=== PATIENT | male | born 1955 | race Caucasian/White ===

== ENCOUNTER → 2019-07-25 | Outpatient (CLI) | payer OTHER | LOC: M.ULTRA 08:50 | DX: K76.0 Fatty (change of) liver, not elsewhere classified (principal); R79.89 Other specified abnormal findings of blood chemistry ==

== ENCOUNTER → 2021-02-27 | Day surgery (SDC) | payer OTHER ==
[~2021-02-27] MED LIST: MELOXICAM15 MG PO; OMEPRAZOLE 20 M20 M1 PO; OXYCODONE HCL 55 MG PO
--- NOTE | ~2021-02-27 | OP ---
[address] [address] OPERATIVE REPORT Name: GAY RODRIGUEZ Room: [facility].#: [id number] Admission: 02/27/21 Attend Phys: Neno Carpenter DO Discharge: Date of : 55 Report #: [id number] THIS REPORT FOR: cc: Devaughn Helm,Neno Rudd DO ~ cc: Devaughn Helm DO DATE OF SURGERY: 02/27/2021 REFERRING PHYSICIAN: Devaughn Helm DO PREOPERATIVE DIAGNOSIS: Bilateral inguinal hernias. POSTOPERATIVE DIAGNOSIS: Bilateral direct inguinal hernias with the left being larger than the right. PROCEDURES: Da Hallie robotic-assisted laparoscopic bilateral inguinal hernia repair with anatomic ProGrip mesh 10 x 15 cm on both sides. SURGEON: Neno Carpenter DO GUIDANCE CONSULTANT: Dr. Austin Galindo, PGY1. SECOND ROLL UP MACHINE OPERATOR: Student, Dr. Torsten Mahmood, MS4. ANESTHESIA: General endotracheal and TAP blocks. ESTIMATED BLOOD LOSS: Less than 20 mL. COMPLICATIONS: None. DESCRIPTION OF PROCEDURE: After obtaining proper consents and discussing risks and complications with the patient, he was taken to the operating room, laid in the supine position and administered general endotracheal anesthetic. He was then prepped and draped in the usual sterile fashion. A time-out was performed. We confirmed the appropriate patient and procedure. Preoperative antibiotics had been given. SCDs were in place. We also had Anesthesia perform TAP blocks before we prepped and draped the patient. Once the patient was prepped and draped, we made a small supraumbilical skin incision with a #11 scalpel blade. This was carried down through the skin into the subcutaneous tissue using electrocautery for hemostasis. Once the fascia was encountered, it was incised along the midline, grasped and elevated with William clamps. The peritoneum was then bluntly opened using a hemostat. We then placed 2-0 Vicryl sutures in a byegdl-es-aeovh fashion to secure the camera port, which was then inserted. Once the camera port was inserted, insufflation was begun[place] [address] OPERATIVE REPORT Name: GAY RODRIGUEZ Room: [facility].#: [id number] Admission: 02/27/21 Attend Phys: Neno Carpenter DO Discharge: Date of : 55 Report #: [id number] was complete, full visual inspection of the anterior abdominal organs was performed. This revealed a small right direct inguinal hernia. We were unable to see the left side at this point because there were some adhesions of the sigmoid colon up over the left inguinal region. We did, however, note that the patient had a fairly large hernia in that area, so we proceeded to place 2 more Da Hallie laparoscopic ports, 1 in the right upper quadrant and 1 in the left upper quadrant. We then docked the da Hallie robot. Once the robot was docked, we inserted monopolar scissors in the right upper quadrant and a bipolar fenestrated grasper in the left upper quadrant. I then broke scrub and went on console. Once on console, I was able to take down the adhesions of the sigmoid colon to the left abdominal wall and then identified a direct inguinal hernia, which was quite a bit larger than the one on the right. We then identified the ASIS on both sides. At this point, we inserted the right and left anatomic ProGrip meshes along with a 2-0 absorbable V-Loc suture for each side. I then opened the peritoneum from the median umbilical ligament on the left side laterally to the ASIS. I then developed the preperitoneal space starting medially and going all the way down to the pubic ramus. Once at the pubic ramus, I then dissected more laterally and I was easily able to reduce the direct hernia back into the peritoneal cavity. I then continued the dissection laterally along the spermatic cord and dissected the peritoneum away until I was able to go all the way out to the ASIS and make the opening large enough for the 10 x 15 cm ProGrip mesh. I then turned my attention to the patient's right side, where I opened the peritoneum similarly from the median umbilical ligament laterally to the ASIS. I then dissected medially first all the way down below the pubic ramus. I identified a small direct inguinal hernia, which was reduced back into the peritoneal cavity. I then continued the dissection laterally along the spermatic cord until the peritoneum was completely freed all the way out to the ASIS again to make the space large enough to place an anatomic ProGrip mesh, 10 x 15 cm. The meshes were then opened on both sides and they fit into the pockets very nicely. I then closed the peritoneum on both sides using a running 2-0 V-Loc 90-day absorbable suture. Once this was done, I then rescrubbed to the patient's bedside. We undocked the da Hallie robot. We removed all the trocars. I then closed the umbilical fascia using the 2 previously placed 0 Vicryl sutures plus an additional 0 Vicryl suture. Skin incisions were all closed using 4-0 Monocryl in subcuticular stitches. Dermabond was placed. The patient was then awakened in the operating room and transported to recovery room in stable condition. Sponge, needle and instrument counts were all correct at the end of the procedure. By: [id number] Argelia Carpenter DO /nt
[2021-02-27 09:23] LABS: HEMATOCRIT 45.9 % (42.0-52.0); HEMOGLOBIN 15.5 gm/dL (14.0-18.0); MCH 30.2 pg (26.0-34.0); MCHC 33.8 g/dL (28.0-37.0); MCV 89.4 fL (80.0-100.0); MPV 7.8 fl. (7.2-11.1); RBC 5.14 mil/uL (4.50-6.00); RDW-CV 12.8 % (10.5-14.5); WBC 5.9 thou/uL (4.0-11.0)
[2021-02-27 09:31] LABS: CALCIUM 8.7 mg/dL (8.5-10.1); CREATININE 1.2 mg/dL (0.6-1.3); POTASSIUM 4.2 mmol/L (3.5-5.1)
--- NOTE | 2021-02-27 10:04 | EKG ---
[place] [address] ELECTROCARDIOGRAM REPORT Name: GAY RODRIGUEZ Room: [facility].#: [id number] Admission: 02/27/21 Attend Phys: Neno Carpenter DO Discharge: Date of : 55 Date of Service: 02/27/21904 Report #: [id number] THIS REPORT FOR: //name// [facility] Test Date: 2021-02-27 Test Time: 09:05:34 Pat Name: GAY RODRIGUEZ Department: Room: Gender: Cash Applications Analyst: : 1955 Requested By: Shea Hurtado Order Number: [id number] Valentin MD: Dawit Lew Measurements Intervals [place] Rate: 59 P: 26 AL: 163 QRS: -39 QRSD: 139 T: 13 QT: 430 QTc: 426 Interpretive Statements Sinus rhythm Right bundle branch block No previous ECG available for comparison Electronically Signed On 02-27-2021 10:04:13 CDT by Dawit Lew [email or web address] <ELECTRONICALLY SIGNED> By: Dawit Lew MD, [facility] 02/27/21 1004 4 4 Dawit Lew MD, [facility] /EPI
== END | disposition home or self-care (01) ==
LOC: M.SUR 08:48
PROVIDERS: Anesthesiology; ATTEND Surgery
DX: K40.20 Bilateral inguinal hernia, without obstruction or gangrene, not specified as recurrent (principal); K21.9 Gastro-esophageal reflux disease without esophagitis; Z98.890 Other specified postprocedural states; Z79.899 Other long term (current) drug therapy; Z20.822 Contact with and (suspected) exposure to COVID-19